=== PATIENT | female | born 2000 | race Two or more races ===

== ENCOUNTER 2019-03-07 11:13 | Emergency (ER) | payer BC ==
[~2019-03-07] VITALS: Ht 157.5 cm; Wt 58.1 kg
[~2019-03-07 11:13] MED LIST: ACETAMINOPHEN325 M1 PO; CYCLOBENZAPRINE10 MG PO; NAPROXEN500 MG PO
[2019-03-07] MEDS ORDERED: ONDANSETRON ODT8 MG PO (13:41)
== END 2019-03-07 13:55 | disposition home or self-care (01) ==
LOC: ED 11:13
DX: K52.9 Noninfective gastroenteritis and colitis, unspecified (principal)
CPT/HCPCS: 80053; 81001; 83690; 84703; 85025; 96361; 96374; 99284-25; J2405; J7030

== ENCOUNTER 2019-07-25 18:54 | Emergency (ER) | payer BC ==
[~2019-07-25] VITALS: Ht 157.5 cm; Wt 52.2 kg
[~2019-07-25 18:54] MED LIST changes: +ONDANSETRON ODT8 MG PO
[2019-07-25] MEDS ORDERED: NORCO 5-325 TA1 EACH PO (19:59)
[2019-07-25] MEDS ORDERED: KEFLEX500 MG PO (19:59)
== END 2019-07-25 20:10 | disposition home or self-care (01) ==
LOC: ED 18:54
DX: H66.92 Otitis media, unspecified, left ear (principal); J98.8 Other specified respiratory disorders; B97.89 Other viral agents as the cause of diseases classified elsewhere
CPT/HCPCS: 99283